=== PATIENT | female | born 1960 | race Caucasian/White ===

== ENCOUNTER 2020-03-21 07:25 | Outpatient (CLI) | payer OTHER, SELFPAY ==
[2020-03-21 08:32] LABS: Basophils Absolute Auto 0.1 K/mm3 (0.0-0.1); Basophils Percent Auto 1.1 % (0.2-1.2); Eosinophils Absolute Auto 0.3 K/mm3 (0-0.3); Eosinophils Percent Auto 3.2 % (0-4.4); Hematocrit 41.3 % (37.0-47.0); Hemoglobin 14.2 g/dL (12.0-15.0); Immature Granulocyte Absolute 0.04 K/mm3 (0.00-0.031); Immature Granulocyte Percent A 0.5 % (0-0.5); Lymphocytes Absolute Auto 2.41 K/mm3 (0.9-3.2); Lymphocytes Percent Auto 29.6 % (18.3-44.2); Mean Corpuscular HGB Conc 34.4 g/dl (32-36); Mean Corpuscular Hemoglobin 30.3 pg (26-34); Mean Corpuscular Volume 88.1 fl (80-100); Mean Platelet Volume 9.6 fl (7.4-10.4); Monocytes Absolute Auto 0.6 K/mm3 (0.1-0.6); Monocytes Percent Auto 7.5 % (2.6-8.5); Neutrophils Absolute Auto 4.7 K/mm3 (1.3-6.7); Neutrophils Percent Auto 58.1 % (45.5-73.1); Platelet Count Result 299 k/mm3 (150-375); Red Blood Count 4.69 M/mm3 (4.2-5.4); Red Cell Distribution Width 13.1 % (11.5-14.5); White Blood Count 8.1 K/mm3 (4.5-10.0)
[2020-03-21 08:49] LABS: Alanine Aminotransferase 35 U/L (4-35); Albumin Level 4.2 g/dL (3.5-5.1); Alkaline Phosphatase 91 U/L (38-126); Anion Gap 7 mmol/L (8-16); Aspartate Amino Transferase 33 U/L (14-36); Blood Urea Nitrogen 14 mg/dL (7-17); Calcium 9.5 mg/dL (8.4-10.2); Carbon Dioxide 29 mmol/L (22-30); Chloride 100 mmol/L (98-107); Cholesterol 230 mg/dL (0-200); Estimated Glomerular Filt Rate > 60; Glucose 115 mg/dL (65-105); HDL Direct 52 mg/dL; Potassium 3.8 mmol/L (3.4-5.0); Sodium 136 mmol/L (137-145); Triglycerides 226 mg/dL (<150)
[2020-03-21 09:00] LABS: LDL Cholesterol Direct 137 mg/dL
[2020-03-21 09:33] LABS: Free T4 Free Thyroxine 0.95 ng/mL (0.78-2.19)
== END 2020-03-21 07:26 | disposition home or self-care (01) ==
PROVIDERS: PCP Physician Assistant
DX: Z00.01 Encounter for general adult medical examination with abnormal findings (principal)
CPT/HCPCS: 36415; 80053; 80061; 82306; 84439; 84443; 85025

== ENCOUNTER 2020-04-01 08:24 | Outpatient (CLI) | payer OTHER, SELFPAY ==
[2020-04-01 14:46] LABS: Hemoglobin A1C 5.2 % (<5.7)
== END 2020-04-01 08:25 | disposition home or self-care (01) ==
PROVIDERS: PCP Physician Assistant
DX: R79.89 Other specified abnormal findings of blood chemistry (principal)
CPT/HCPCS: 36415; 83036

== ENCOUNTER 2020-04-15 07:22 | Outpatient (CLI) | payer OTHER, SELFPAY ==
--- NOTE | ~2020-04-15 | US_ITS ---
EXAMINATION: US pelvic complete DATE: 04/15/2020 16:42 INDICATION: Postmenopausal bleeding. TECHNIQUE: Multiple transabdominal sonographic images of the pelvis were obtained. COMPARISON: None. FINDINGS: The uterus measures 15.8 x 7.0 x 8.0 cm. Anechoic fluid measuring up to 8 mm in thickness extending t hroughout the endometrial canal. Subtracting the endometrial fluid the endometrial complex appears to measure <5 mm in thickness although in place the endometrial/myometrial junction is poorly defined. There is asymmetric thickening of the anterior myometrium which demonstrates heterogeneous echogenici ty with coarsened echotexture. No clearly defined uterine fibroid identified on the cine images. The right ovary measures 3.8 x 2.4 x 2.1 cm. The 1.8 cm near anechoic likely cyst in the right ovary. Vas cular flow identified in the right ovary on color Doppler. The left ovary is not visualized. There is no free fluid in the pelvis. IMPRESSION: 1. Asymmetrically thickened anterior myometrium with heterogeneous echogenicity and coarsened echotex ture without a clearly defined uterine fibroid which is suspicious for adenomyosis. If clinically ind icated MRI could be obtained for more definitive determination. Reviewed, dictated and finalized at location A. IMPRESSION: 1. Asymmetrically thickened anterior myometrium with heterogeneous echogenicity and coarsened echotexture without a clearly defined uterine fibroid which is s uspicious for adenomyosis. If clinically indicated MRI could be obtained for mo re definitive determination.
[2020-04-18 07:32] LABS: FSH 16.3 mIU/mL (***); LH 8.1 mIU/mL (***); Prolactin 4.1 ng/mL (***)
== END 2020-04-15 07:23 | disposition home or self-care (01) ==
PROVIDERS: Visit Provider Nurse Practitioner
DX: N95.0 Postmenopausal bleeding (principal)
CPT/HCPCS: 36415; 76856; 83001; 83002; 84146

== ENCOUNTER 2020-05-08 15:59 | Outpatient (CLI) | payer OTHER, SELFPAY ==
--- NOTE | 2020-05-08 16:04 | ECG_ITS ---
Measurements Intervals [place] Rate: 88 P: 56 AK: 165 QRS: 40 QRSD: 92 T: 5 QT: 354 QTc: 428 Interpretive Statements SINUS RHYTHM NONSPECIFIC T-WAVE ABNORMALITY- ANT/INF LEADS BORDERLINE ECG Electronically Signed On 05-08-2020 16:34:18 CDT by Edgar Hu D.O.
== END 2020-05-08 16:00 | disposition home or self-care (01) ==
LOC: ANHCARD 16:01
PROVIDERS: Visit Provider Anesthesiology
DX: I10 Essential (primary) hypertension (principal); Z01.818 Encounter for other preprocedural examination; R94.31 Abnormal electrocardiogram [ECG] [EKG]
CPT/HCPCS: 93005

== ENCOUNTER 2020-05-14 01:39 | Outpatient (CLI) | payer OTHER, SELFPAY ==
[2020-05-14 18:17] LABS: SARS-CoV-2 RNA PCR Negative
== END 2020-05-14 01:40 | disposition home or self-care (01) ==
LOC: ANHCOVIDDT 01:39
PROVIDERS: Visit Provider Obstetrics & Gynecology
DX: Z01.812 Encounter for preprocedural laboratory examination (principal); Z20.828 Contact with and (suspected) exposure to other viral communicable diseases
CPT/HCPCS: 87635; C9803; U0003

== ENCOUNTER 2020-05-16 01:22 | Day surgery (SDC) | payer OTHER, SELFPAY ==
[2020-05-05 09:29] VITALS: BMI 34.9
[2020-05-16 13:03] VITALS: BP 160/83; PULSE 92; RESP 16; TEMP 36.7; O2SAT 100
[2020-05-16] MEDS: ACETAMINOPHEN 500 MG TABLET 1000 MG PO (13:08)
[2020-05-16] MEDS: LACTATED RINGERS 1,000 ML 30 ML IV CONT ×2 (13:30→17:03)
--- NOTE | 2020-05-16 14:04 | WPDANESEPPF ---
Anes - Initial Pre Proc Eval Procedure: Operation Date: 05/16/20 15:00 Proposed Procedures p Hysteroscopy Dilation and Curettage - Raf Duque MD Date/Time: 05/16/20 14:04 Surgeon: Raf Duque MD Pre Op Diagnosis: Post Menopausal Bleeding Patient Data Age: 59 Gender: F Height: 1.65 m Weight: 94.2 kg Last Vital Signs Temp 36.7 C 05/16/20 13:03 Pulse 92 05/16/20 13:03 Resp 16 05/16/20 13:03 BP 160/83 H 05/16/20 13:03 Pulse Ox 100 05/16/20 13:03 Allergies Allergy/AdvReac Type Severity Reaction Status Date / Time No Known Allergies Allergy Unverified 05/16/20 13:01 Home Medications Medication Instructions Recorded Confirmed Type Vitamin D3 1 tablet PO DAILY 05/05/20 05/16/20 History aspirin 81 mg PO DAILY 05/05/20 05/16/20 History calcium 600 mg PO DAILY 05/05/20 05/16/20 History losartan 100 mg PO DAILY 05/05/20 05/16/20 History multivitamin 1 tablet PO DAILY 05/05/20 05/16/20 History omega-3 fatty acids [Fish Oil] 1,000 mg PO DAILY 05/05/20 05/16/20 History Patient hx anesthesia problems: none Family hx anesthesia problems: none PMFSH Past Medical History Medical History (Updated 05/16/20 @ 14:05 by Srinivas Fernández MD) HTN (hypertension) Obesity Family History Family History (Updated 08/05/16 @ 11:45 by DOCTOR UNKNOWN) Father Malignant neoplasm of prostate Grandparent Diabetes mellitus Cerebrovascular accident Carcinoma of colon Mother Family history of hypercholesterolemia Hypertension Familial primary pulmonary hypertension Social History Social History Smoking status: Never smoker Alcohol intake: current Spiritual care concerns: No Anes - Eval Final PreProcedure Day of Procedure 05/16/20 14:04 Patient weight: obese Heart: regular rate and rhythm Lungs: clear to auscultation and normal air movement Airway: Mallampati scale class II Neurological: alert and oriented Last oral intake: >/= 8 hours ASA classification: III Emergent: no Anesthetic plan: proceed Anesthesia type and monitoring: general GIVS and LMA Informed Consent: The patient's anesthetic plan and its attendant risks and benefits were discussed with the patient/family/POA. Questions were solicited and answers provided to the satisfaction of the patient/family/POA.
--- NOTE | 2020-05-16 15:14 | SUR.PREOP ---
1300-PT INFORMED SURGEON DELAYED ~45 MINUTES BY PRIOR SURGEON. 1510-PT UPDATED WITH EXPECTED TIME OF SURGERY ~1600. PT STATES SHE WILL INFORM HER OF DELAY.
--- NOTE | 2020-05-16 15:36 | P.HP_ITS ---
History of Present Illness History of Present Illness Consent: Risks, benefits, and alternatives have been discussed and questions answered. Patient agrees to proceed with procedure. Chief complaint: Post Menopausal Bleeding Narrative: Lili Lyons is a 59 year old female postmenopausal presented to the office in early april with bleeding for 1 month. patient reports bleeding heavy for two day then lightened. [facility] Past Medical History Medical History HTN (hypertension) Obesity Family History Family History Father Malignant neoplasm of prostate Grandparent Diabetes mellitus Cerebrovascular accident Carcinoma of colon Mother Family history of hypercholesterolemia Hypertension Familial primary pulmonary hypertension Social History Social History Smoking status: Never smoker Alcohol intake: current Spiritual care concerns: No Meds Home Medications and Allergies Home Medications Medication Instructions Recorded Confirmed Type Vitamin D3 1 tablet PO DAILY 05/05/20 05/16/20 History aspirin 81 mg PO DAILY 05/05/20 05/16/20 History calcium 600 mg PO DAILY 05/05/20 05/16/20 History losartan 100 mg PO DAILY 05/05/20 05/16/20 History multivitamin 1 tablet PO DAILY 05/05/20 05/16/20 History omega-3 fatty acids [Fish Oil] 1,000 mg PO DAILY 05/05/20 05/16/20 History Allergies Allergy/AdvReac Type Severity Reaction Status Date / Time No Known Allergies Allergy Unverified 05/16/20 13:01 Vital Signs Vital Signs - 24 hr 05/16/20 13:03 Temperature 36.7 C Pulse Rate 92 Respiratory Rate 16 Blood Pressure 160/83 H Pulse Oximetry 100 Exam Resp: Effort & Inspection: normal respiratory effort Percussion: percussion normal Cardio: Rate: regular rate Rhythm: regular rhythm GI: Other: cervix positive blood at os. Assessment and Plan Assessment and plan (1) Post-menopausal bleeding: Code(s): N95.0 - Postmenopausal bleeding Status: Acute Assessment and Plan: scheduled for a hysteroscopy dilation and curettage. Risk and benefits reviewed in detail.
--- NOTE | 2020-05-16 15:39 | WPDHPUPDATE1 ---
History and Physical Update Update Date/Time: 05/16/20 15:39 History and Physical has been reviewed, including an updated exam of the patient. There are NO changes in the patient's condition. Risks, benefits, and alternatives have been discussed and questions answered. Patient agrees to proceed with procedure.
[2020-05-16] MEDS: LIDOCAINE HCL 1% LOCAL INJ 10 ML VIAL INFILTRATE (16:31)
--- NOTE | 2020-05-16 16:45 | PM.PROC ---
Procedure Note - Detailed Date of procedure: 05/16/20 Pre-op diagnosis: Post Menopausal Bleeding Post-op diagnosis: same Procedure performed: hysteroscopy dilation and curettage with polypectomy Description of procedure: Patient was taken to the operating room with IV running. and she was repaired draped in normal sterile fashion placed in the dorsal lithotomy position. A bivalve speculum was placed into the vagina. Anterior lip of the cervix was grasped with single-tooth tenaculum. The uterus was injected at the 2 and 10 o'clock position with 5cc of lidocaine bilaterally. Uterus was sounded to 7cm the cervix was dilated serially with Hegar dilators. Hysteroscope was introduced and noted to small uterine polyps. These were grasped with the polyp forceps graspers. A curettage was then performed in all 4 quadrants with a gritty texture. And all instruments were removed from the vagina and hemostasis was assured. Patient tolerated the procedure well sponge lap and needle counts were correct x2. Anesthesia: GLMA Surgeon: Raf Duque MD Estimated blood loss (mL): 10 Drains: No Packing: No Pathology: yes Complications: None Condition: stable Disposition: PACU Findings: small endometrial polyps.
[2020-05-16 16:46] VITALS: BP 117/76; PULSE 93; RESP 16; O2SAT 96
[2020-05-16 17:16] VITALS: BP 125/70; PULSE 82; RESP 16
== END 2020-05-16 17:30 | disposition home or self-care (01) ==
PROVIDERS: PCP Internal Medicine; Visit Provider Obstetrics & Gynecology
PROC: 0U5B8ZZ Destruction of Endometrium, Via Natural or Artificial Opening Endoscopic (ICD-10-PCS; CPT 58563; principal; 2020-05-16 15:00)
DX: N95.0 Postmenopausal bleeding (principal); N84.0 Polyp of corpus uteri; I10 Essential (primary) hypertension; E11.9 Type 2 diabetes mellitus without complications; Z68.34 Body mass index [BMI] 34.0-34.9, adult
CPT/HCPCS: 58558; 88305; A9270; J2250; J2704; J3010; J7030; J7120

== ENCOUNTER 2020-06-18 07:09 | Outpatient (CLI) | payer OTHER, SELFPAY ==
--- NOTE | ~2020-06-18 | MM_ITS ---
EXAMINATION: MM screening sabina BI w kamila HISTORY: Screening mammogram TECHNIQUE: Craniocaudal and mediolateral oblique 3-D tomosynthesis images were obtained and synthetic 2-D images were generated. CAD analysis was submitted and interpreted. COMPARISON: 06/11/2019, 05/17/2018, 05/04/2017 bilateral digital screening mammogram examinations BREAST PARENCHYMAL COMPOSITION: There are scattered areas of fibroglandular density. FINDINGS: There is a 5-8 mm high density opacity (or contiguous opacities) in the central right breas t on craniocaudal view (craniocaudal Tomosynthesis images 33 - 39/72). Diagnostic right mammogram and right breast ultrasound examination are recommended for better definition. Otherwise there is no evidence of suspicious mass, calcification, or architectural distortion to sugg est malignancy in either breast. There are scattered bilateral benign calcifications. There has been no other suspicious interval change. IMPRESSION: 1. Asymmetric density in central right breast on craniocaudal view 2. Diagnostic right mammogram and right breast ultrasound examination are recommended. BI-RADS Category 0: Incomplete: Needs additional imaging evaluation. Reviewed, dictated and finalized at location A. CH TRIMMER IMPRESSION: 1. Asymmetric density in central right breast on craniocaudal view 2. Diagnostic right mammogram and right breast ultrasound examination are recom mended. BI-RADS Category 0: Incomplete: Needs additional imaging evaluation.
== END 2020-06-18 07:10 | disposition home or self-care (01) ==
PROVIDERS: Visit Provider Obstetrics & Gynecology
DX: Z12.31 Encounter for screening mammogram for malignant neoplasm of breast (principal); R92.8 Other abnormal and inconclusive findings on diagnostic imaging of breast
CPT/HCPCS: 77063; 77067

== ENCOUNTER 2020-06-19 08:15 | Outpatient (CLI) | payer OTHER, SELFPAY ==
--- NOTE | ~2020-06-19 | MMUS_ITS ---
EXAMINATION: MM diagnostic mammo unilat RT, US breast RT complete HISTORY: Asymmetric mammographic density reported in central right breast on 06/18/2020 screening mamm ogram TECHNIQUE: Additional 3-D tomosynthesis images of the right breast were performed and synthetic 2-D i mages were generated. CAD analysis was submitted and interpreted. High resolution complete right abhishek st ultrasound was performed. COMPARISON: 06/18/2020, 06/11/2019, 05/17/2018, 05/04/2017, 05/10/2016 bilateral digital screening sabina mogram examinations FINDINGS: MAMMOGRAPHIC FINDINGS: There is a stable focal asymmetric density measuring up to approximately 6 mm in the central right br east on craniocaudal view, not significantly changed since 03/29/2014. ULTRASOUND: 9:00 near nipple: 2.2 x 3.2 x 4.9 mm sonolucency most consistent with benign process, likely a small lymph node. No suspicious mass or shadowing is detected elsewhere. No suspicious sonographic finding in the cent ral right breast. IMPRESSION: 1. Probably benign 2.2 x 3.2 x 4.9 mm circumscribed mass at 9:00 near nipple 2. 6 month follow up targeted right breast ultrasound examination at 9:00 near nipple BI-RADS category 3, probably benign findings. Reviewed, dictated and finalized at location A. [employer] OFF[employer] IMPRESSION: 1. Probably benign 2.2 x 3.2 x 4.9 mm circumscribed mass at 9:00 near nipple 2. 6 month follow up targeted right breast ultrasound examination at 9:00 near nipple BI-RADS category 3, probably benign findings.
== END 2020-06-19 08:16 | disposition home or self-care (01) ==
PROVIDERS: Visit Provider Obstetrics & Gynecology
DX: R92.8 Other abnormal and inconclusive findings on diagnostic imaging of breast (principal)
CPT/HCPCS: 76641; 77065

== ENCOUNTER 2020-10-08 14:05 | Emergency (ER) | payer OTHER, SELFPAY ==
--- NOTE | ~2020-10-08 | CT_ITS ---
EXAMINATION: CT hand LT wo con DATE: 10/08/2020 16:27 INDICATION: Intra-articular fracture at the base of the left fifth metacarpal. TECHNIQUE: High resolution computed tomography (CT) of the left hand was performed without intravenou s contrast. Additional sagittal and coronal reconstructions were performed. Automated exposure contro l and iterative reconstruction technique were employed. The dose-length product was 462.51 mGy-cm. COMPARISON: Left hand radiographs dated 10/08/2020 FINDINGS: Again seen is a comminuted intra-articular fracture at the base of the fifth metacarpal. The main dis brittany fragment compressing diaphysis and dorsal aspect of the metaphyseal region is displaced 3 mm prox imally and 1 mm posteriorly relative to a couple small fragments which comprises the palmar aspect of the proximal metaphyseal region and ulnar rim of the proximal articular surface and the second fragm ent which comprises the central majority of the proximal articular surface which remains in normal al ignment with respect to the hamate. There is an additional small fragment or closely opposed pair of fragments which comprises the ulnar rim of the proximal articular surface which along with the main d istal diaphyseal fragment are displaced a similar 3 mm proximally across the ulnar rim of the distal articular surface of the hamate. No other fractures identified. Normal alignment throughout the remainder of the left wrist and hand. 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 There is mild soft tissue swelling in the region of the fracture. IMPRESSION: 1. Comminuted intra-articular fracture at the base of the left fifth metacarpal as detailed above. Reviewed, dictated and finalized at location A.
--- NOTE | ~2020-10-08 | XR_ITS ---
XR knee RT min 4V 10/08/2020 14:56 Indication: Right knee pain after fall Procedure: 5 views of the right knee Comparison: No prior studies for comparison. Findings: There is a transverse patellar fracture without significant displacement. There is a modera te joint effusion. There is mild osteoarthritis of the knee. No other fracture is identified. No fore ign bodies. Impression: 1: Transverse nondisplaced fracture inferior aspect of the right patella. 2: Moderate joint effusion. Reviewed, dictated and finalized at location A. Impression: 1: Transverse nondisplaced fracture inferior aspect of the right patella. 2: Moderate joint effusion.
--- NOTE | ~2020-10-08 | XR_ITS ---
EXAMINATION: XR hand LT min 3V DATE: 10/08/2020 14:55 INDICATION: Left hand pain post fall TECHNIQUE: Posteroanterior, oblique and lateral views of the left hand were obtained. COMPARISON: None. FINDINGS: Comminuted intra-articular fracture at the base of the fifth metacarpal. There appears to be some dis placement of the bone fragments which has a potential for a significant (greater than 2 mm) fracture gap or incongruity at the articular surface which is not clearly profiled. No other fractures identif ied. 2 mm ulnar minus variance. Alignment is otherwise unremarkable. Mild polyarticular osteoarthriti s at the distal radioulnar, first carpometacarpal and multiple predominantly distal interphalangeal j oints. IMPRESSION: 1. Comminuted intra-articular fracture at the base of the fifth metacarpal with some displacement wit h potential for a significant gap or incongruity at the articular surface. Reviewed, dictated and finalized at location A. IMPRESSION: 1. Comminuted intra-articular fracture at the base of the fifth metacarpal with some displacement with potential for a significant gap or incongruity at the a rticular surface.
[2020-10-08 14:07] VITALS: BP 164/92; PULSE 98; RESP 16; TEMP 36.9; O2SAT 100
--- NOTE | 2020-10-08 14:40 | ED.GENADULT ---
HPI - General Adult General Chief complaint: Fall Stated complaint: fall Time Seen by Provider: 10/08/20 14:24 Source: RN notes reviewed History of Present Illness HPI narrative: Patient presents emergency department from work for a fall. Patient states she was walking when she tripped falling on her right knee and striking her left arm patient states that she note later noted some small swelling and abrasion over her left cheek she denies any loss of consciousness and denies striking her head that she recalls she denies any other pain or injury states she took Tylenol approximately 1 hour ago denies any chest pain shortness of breath nausea or vomiting Related Data Home Medications Medication Instructions Recorded Confirmed Vitamin D3 1 tablet PO DAILY 05/05/20 05/16/20 aspirin 81 mg PO DAILY 05/05/20 05/16/20 calcium 600 mg PO DAILY 05/05/20 05/16/20 losartan 100 mg PO DAILY 05/05/20 05/16/20 multivitamin 1 tablet PO DAILY 05/05/20 05/16/20 omega-3 fatty acids [Fish Oil] 1,000 mg PO DAILY 05/05/20 05/16/20 Allergies Allergy/AdvReac Type Severity Reaction Status Date / Time No Known Allergies Allergy Unverified 05/16/20 13:01 Review of Systems Review of Systems: Narrative: Gen.: Denies fevers or chills Eyes: Denies eye pain or visual change ENT: Denies congestion Respiratory: Denies shortness of breath or cough CV: Denies chest pain GI: Denies abdominal pain nausea, emesis or diarrhea Musculoskeletal: See HPI Neuro: Denies numbness, tingling, weakness or focal weakness Skin: Denies rash Except as documented, all other systems reviewed and negative [facility] Past Medical History Medical History HTN (hypertension) Obesity Post-menopausal bleeding Family History Family History Father Malignant neoplasm of prostate Grandparent Diabetes mellitus Cerebrovascular accident Carcinoma of colon Mother Family history of hypercholesterolemia Hypertension Familial primary pulmonary hypertension Social History Social History Smoking status: Never smoker Alcohol intake: current Spiritual care concerns: No Exam Narrative: Exam Narrative: APPEARANCE: No acute distress, nontoxic, resting in bed EYES: EOMI, PERRL HEENT: Normocephalic, small area of abrasion and swelling over the left inferior lateral orbit there is no tenderness to palpation in this area no step-off TMs clear bilaterally nares patent oral mucosa moist Neck: Supple nontender to palpation for range of motion without pain RESPIRATORY: No respiratory distress Clear to auscultation bilaterally with no rhonchi wheezing or rales. CARDIOVASCULAR: Regular rate and rhythm without murmurs rubs or gallops. ABDOMINAL: Soft, nontender, nondistended, no rebound or guarding MUSCULOSKELETAl: Moves all extremities. No clubbing, cyanosis or edema. Tender palpation of the right anterior knee with swelling ecchymosis present full range of motion of the knee no tenderness of the right hip or ankle to palpation on the left lateral palmar hand over the fifth metatarsal no swelling or ecchymosis no tenderness of the wrist with full range of motion of the wrist full flexion-extension of all 5 MCP joints, radial pulse 2+ neurovascular intact right lower extremity neurovascular intact NEURO: Awake and alert x 4 Following commands, speech normal, no focal deficits SKIN:: Warm, dry. No rashes lesions or abrasions PSYCHIATRIC: Normal affect/mood, Course Course Emergency Course: Discussed with Dr. Poole presentation work-up agrees with follow-up requested patient be discharged with a walker with a forearm platform order he request a CT scan him be obtained request patient started on aspirin 81 mg twice a day for DVT prophylaxis Discussed with patient results of workup and diagnosis. Discussed need for follow-up with damián
--- NOTE | 2020-10-08 16:16 | PC.NURSE ---
Patient declined crutches, has some at home as well as a walker.
--- NOTE | 2020-10-14 10:54 | PC.NURSE ---
10/14/30 This Note is addendum to the left arm orthoglass splint and assessment to left arm after splint application on 10/08/20. PVS to left arm WNL after splint application by career and technology education teacher.
== END 2020-10-08 17:23 | disposition home or self-care (01) ==
PROVIDERS: Emergency Provider Emergency Medicine; PCP Internal Medicine
DX: S82.001A Unspecified fracture of right patella, initial encounter for closed fracture (principal); S62.307A Unspecified fracture of fifth metacarpal bone, left hand, initial encounter for closed fracture; S00.83XA Contusion of other part of head, initial encounter; I10 Essential (primary) hypertension; W01.0XXA Fall on same level from slipping, tripping and stumbling without subsequent striking against object, initial encounter
CPT/HCPCS: 29125; 73130; 73200; 73564; 99284

== ENCOUNTER 2020-10-17 10:59 | Outpatient (CLI) | payer OTHER, SELFPAY ==
--- NOTE | ~2020-10-17 | US_ITS ---
EXAMINATION:US venous doppler LE RT INDICATION:Right leg swelling postpatellar fracture TECHNIQUE: Multiple grayscale, color flow and Doppler images of the right lower extremity deep venous systems were obtained and reviewed. COMPARISON:No prior studies for comparison. FINDINGS: The common femoral, superficial femoral and popliteal veins demonstrate normal respiratory variation, augmentation and compressibility. Color flow is also seen within the greater saphenous an d profunda veins. There is a venous thrombosis of the right posterior tibial and peroneal veins. IMPRESSION: 1: Deep venous thrombosis of the right peroneal and posterior tibial veins. Dr. Parker discussed with Dr. Ubaldo Poole MD at 10/17/2020 11:55 CDT. Reviewed, dictated and finalized at location B.
== END 2020-10-17 11:00 | disposition home or self-care (01) ==
PROVIDERS: Visit Provider Orthopaedic Surgery
DX: M79.89 Other specified soft tissue disorders (principal); I82.441 Acute embolism and thrombosis of right tibial vein
CPT/HCPCS: 93971

== ENCOUNTER 2020-10-17 12:16 | Emergency (ER) | payer OTHER, SELFPAY ==
[2020-10-17 12:21] VITALS: BP 157/87; PULSE 92; RESP 16; TEMP 36.3; O2SAT 99
--- NOTE | 2020-10-17 14:37 | ED.GENADULT ---
HPI - General Adult General Chief complaint: Extremity Problem,Nontraumatic Stated complaint: sent from radiology for dvt rt leg Time Seen by Provider: 10/17/20 14:26 Source: patient, family and old records reviewed Mode of arrival: ambulatory Limitations: no limitations History of Present Illness HPI narrative: Patient is a 60-year-old female who presents per request of her orthopedic surgeon for evaluation of DVT found in the right leg today patient had recently was found to have DVT in the right leg secondary to immobilization after developing a patella fracture seen her orthopedist today was found to have blood clot and was referred to ER patient denies any pain similar occurrence clotting disorders or other complaints and on arrival is resting in the room in no distress Related Data Home Medications Medication Instructions Recorded Confirmed Vitamin D3 1 tablet PO DAILY 05/05/20 05/16/20 aspirin 81 mg PO DAILY 05/05/20 05/16/20 calcium 600 mg PO DAILY 05/05/20 05/16/20 losartan 100 mg PO DAILY 05/05/20 05/16/20 multivitamin 1 tablet PO DAILY 05/05/20 05/16/20 omega-3 fatty acids [Fish Oil] 1,000 mg PO DAILY 05/05/20 05/16/20 Allergies Allergy/AdvReac Type Severity Reaction Status Date / Time No Known Allergies Allergy Unverified 05/16/20 13:01 Review of Systems Review of Systems: All systems reviewed & are unremarkable except as noted in HPI and below PMFSH Past Medical History Medical History HTN (hypertension) Obesity Post-menopausal bleeding Family History Family History Father Malignant neoplasm of prostate Grandparent Diabetes mellitus Cerebrovascular accident Carcinoma of colon Mother Family history of hypercholesterolemia Hypertension Familial primary pulmonary hypertension Social History Social History Smoking status: Never smoker Alcohol intake: current Gender identity (if verbalized by the patient): Female Spiritual care concerns: No Exam Narrative: Exam Narrative: GENERAL: Well-appearing, well-nourished, and in no acute distress. HEAD: Normocephalic, atraumatic. EYES: PERRLA and EOMI. ENT: Nares clear, no rhinorrhea or epistaxis. Mucous membranes moist. CHEST: Clear to auscultation. No respiratory distress. No wheezes rales or rhonchi HEART: Regular rate and rhythm. No murmur heard. Normal peripheral pulses. EXTREMITIES: Normal range of motion. 2+ edema right foot nontender SKIN: Warm, dry, no rash. NEURO: No focal deficits. Alert and oriented x3. Neurovascularly intact. Capillary refill less than 2-second PSYCH: Normal mood and affect. Course Course Emergency Course: Patient in the room no distress aware of case findings treatment plan diagnosis given first dose of Eliquis in the ER will be started on starter pack and will follow with her orthopedist and primary care for further evaluation. Vital Signs Vital signs: Vital Signs Temperature 97.3 F L 10/17/20 12:21 Pulse Rate 92 10/17/20 12:21 Respiratory Rate 16 10/17/20 12:21 Blood Pressure 157/87 H 10/17/20 12:21 Pulse Oximetry 99 10/17/20 12:21 Temperature 97.3 F L 10/17/20 12:21 Pulse Rate 92 10/17/20 12:21 Respiratory Rate 16 10/17/20 12:21 Blood Pressure 157/87 H 10/17/20 12:21 Pulse Oximetry 99 10/17/20 12:21 Medical Decision Making MDM Narrative Medical decision making narrative: Patient presented with DVT. No signs of neurological or vascular compromise on exam. Compartments and tisues are soft without signs of compartment syndrome. Pain is felt appropriate for further evaluation on an outpatient basis. Patient started on anticoagulation Vital Signs Vital Signs: Vital Signs Temperature 97.3 F L 10/17/20 12:21 Pulse Rate 92 10/17/20 12:21 Respiratory Rate 16 10/17/20 12:21 Blood Pressure 157
[2020-10-17] MEDS: APIXABAN 5 MG TABLET 10 MG PO (15:02)
[2020-10-17 15:15] LABS: Basophils Absolute Auto 0.1 K/mm3 (0.0-0.1); Basophils Percent Auto 0.7 % (0.2-1.2); Eosinophils Absolute Auto 0.2 K/mm3 (0-0.3); Eosinophils Percent Auto 1.9 % (0-4.4); Hematocrit 38.6 % (37.0-47.0); Hemoglobin 13.2 g/dL (12.0-15.0); Immature Granulocyte Absolute 0.03 K/mm3 (0.00-0.031); Immature Granulocyte Percent A 0.4 % (0-0.5); Lymphocytes Absolute Auto 1.86 K/mm3 (0.9-3.2); Lymphocytes Percent Auto 22.6 % (18.3-44.2); Mean Corpuscular HGB Conc 34.2 g/dl (32-36); Mean Corpuscular Hemoglobin 30.7 pg (26-34); Mean Corpuscular Volume 89.8 fl (80-100); Mean Platelet Volume 9.5 fl (7.4-10.4); Monocytes Absolute Auto 0.6 K/mm3 (0.1-0.6); Monocytes Percent Auto 7.2 % (2.6-8.5); Neutrophils Absolute Auto 5.5 K/mm3 (1.3-6.7); Neutrophils Percent Auto 67.2 % (45.5-73.1); Platelet Count Result 292 k/mm3 (150-375); Red Cell Distribution Width 13.1 % (11.5-14.5); White Blood Count 8.2 K/mm3 (4.5-10.0)
[2020-10-17 15:29] LABS: Anion Gap 7 mmol/L (8-16); Blood Urea Nitrogen 17 mg/dL (7-17); Carbon Dioxide 30 mmol/L (22-30); Chloride 107 mmol/L (98-107); Estimated CRCL calculation 98 ml/min; Estimated Glomerular Filt Rate > 60; Glucose 97 mg/dL (65-105); Potassium 3.5 mmol/L (3.4-5.0); Sodium 144 mmol/L (137-145)
== END 2020-10-17 16:00 | disposition home or self-care (01) ==
PROVIDERS: Emergency Medicine Emergency Medical Services; Emergency Provider Emergency Medicine; PCP Internal Medicine
DX: I82.401 Acute embolism and thrombosis of unspecified deep veins of right lower extremity (principal); I10 Essential (primary) hypertension; E66.9 Obesity, unspecified; Z68.35 Body mass index [BMI] 35.0-35.9, adult; Z79.82 Long term (current) use of aspirin; S82.001D Unspecified fracture of right patella, subsequent encounter for closed fracture with routine healing; X58.XXXD Exposure to other specified factors, subsequent encounter
CPT/HCPCS: 36415; 80048; 85025; 99283; A9270

== ENCOUNTER 2021-01-09 07:01 | Outpatient (CLI) | payer OTHER, SELFPAY ==
--- NOTE | ~2021-01-09 | MMUS_ITS ---
EXAMINATION: MM diagnostic sabina RT w kamila, US breast RT limited HISTORY: Six-month follow-up of probably benign 2.2 x 3.2 x 4.9 mm circumscribed mass at 9:00 near ni pple TECHNIQUE: ML, MLO and craniocaudal full field and spot 3-D tomosynthesis images of the right breast were performed and synthetic 2-D images were generated. CAD analysis was submitted and interpreted. H igh resolution complete right breast ultrasound was performed. COMPARISON: 07/06/2020 diagnostic right mammogram and complete right breast ultrasound examination 06/18/2020, 06/11/2019, 05/17/2018, 05/04/2017, 05/10/2016 bilateral digital screening mammogram exam[facility] [place] BREAST PARENCHYMAL COMPOSITION: There are scattered areas of fibroglandular density. FINDINGS: MAMMOGRAPHIC FINDINGS: There is stable mildly nodular fibroglandular stroma, including approximately 5 mm nodular density in the central right breast 4.5 cm deep to the nipple on craniocaudal view, unchanged since 05/06/2016. No interval suspicious mass, architectural distortion, malignant calcification, skin thickening or re traction or significant new or developing density. There are scattered benign calcifications. ULTRASOUND: 9:00 near nipple: 2.3 x 3.6 x 4.9 mm circumscribed hypoechoic lesion with suggestion of a fatty hilum , with mild color flow signal at the hilum, likely a benign lymph node. There is no significant sanders e since No suspicious mass or shadowing is detected elsewhere. IMPRESSION: 1. No mammographic evidence of malignancy 2. Routine mammographic screening is recommended BI-RADS Category 2: Benign finding(s). Reviewed, dictated and finalized at location A. IMPRESSION: 1. No mammographic evidence of malignancy 2. Routine mammographic screening is recommended BI-RADS Category 2: Benign finding(s).
== END 2021-01-09 07:02 | disposition home or self-care (01) ==
LOC: ANHIMG 07:03
PROVIDERS: PCP Obstetrics & Gynecology; Visit Provider Obstetrics & Gynecology
DX: R92.8 Other abnormal and inconclusive findings on diagnostic imaging of breast (principal)
CPT/HCPCS: 76641; 76642; 77061; 77065; G0279

== ENCOUNTER 2021-07-31 10:53 | Outpatient (CLI) | payer OTHER, SELFPAY ==
[2021-07-31 19:02] LABS: Basophils Absolute Auto 0.1 K/mm3 (0.0-0.1); Basophils Percent Auto 1.1 % (0.2-1.2); Eosinophils Absolute Auto 0.2 K/mm3 (0-0.3); Eosinophils Percent Auto 2.2 % (0-4.4); Hematocrit 42.7 % (37.0-47.0); Hemoglobin 14.3 g/dL (12.0-15.0); Immature Granulocyte Absolute 0.03 K/mm3 (0.00-0.031); Immature Granulocyte Percent A 0.4 % (0-0.5); Lymphocytes Absolute Auto 1.99 K/mm3 (0.9-3.2); Lymphocytes Percent Auto 27.5 % (18.3-44.2); Mean Corpuscular HGB Conc 33.5 g/dl (32-36); Mean Corpuscular Volume 92.6 fl (80-100); Mean Platelet Volume 10.4 fl (7.4-10.4); Monocytes Absolute Auto 0.5 K/mm3 (0.1-0.6); Monocytes Percent Auto 7.3 % (2.6-8.5); Neutrophils Absolute Auto 4.5 K/mm3 (1.3-6.7); Neutrophils Percent Auto 61.5 % (45.5-73.1); Platelet Count Result 271 k/mm3 (150-375); Red Blood Count 4.61 M/mm3 (4.2-5.4); Red Cell Distribution Width 13.2 % (11.5-14.5); White Blood Count 7.2 K/mm3 (4.5-10.0)
[2021-07-31 19:08] LABS: Alanine Aminotransferase 34 U/L (4-35); Albumin Level 4.1 g/dL (3.5-5.1); Alkaline Phosphatase 87 U/L (38-126); Anion Gap 3 mmol/L (8-16); Aspartate Amino Transferase 28 U/L (14-36); Blood Urea Nitrogen 18 mg/dL (7-17); Calcium 9.9 mg/dL (8.4-10.2); Carbon Dioxide 30 mmol/L (22-30); Chloride 105 mmol/L (98-107); Estimated Glomerular Filt Rate > 60; Glucose 106 mg/dL (65-110); Potassium 4.1 mmol/L (3.4-5.0); Sodium 138 mmol/L (137-145)
[2021-07-31 19:25] LABS: Vitamin D 25 Hydroxy 50.8 ng/mL
== END 2021-07-31 10:54 | disposition home or self-care (01) ==
DX: Z00.01 Encounter for general adult medical examination with abnormal findings (principal)
CPT/HCPCS: 36415; 80053; 82306; 84443; 85025

== ENCOUNTER 2021-08-12 09:33 | Outpatient (CLI) | payer OTHER, SELFPAY ==
--- NOTE | ~2021-08-12 | MM_ITS ---
EXAMINATION: MM screening sabina BI w kamila HISTORY: Screening mammogram, family history of breast cancer in her mother. TECHNIQUE: Craniocaudal and mediolateral oblique 3-D tomosynthesis images were obtained and synthetic 2-D images were generated. CAD analysis was submitted and interpreted. COMPARISON: 01/09/2021, 06/19/2020, 06/18/2020, 06/11/2019, 05/16/2018, 05/04/2017 BREAST PARENCHYMAL COMPOSITION: There are scattered areas of fibroglandular density. FINDINGS: Scattered benign-appearing calcifications are present. A stable asymmetry is present in the middle third of the central right breast on the craniocaudal view. There is no evidence of suspiciou s mass, calcification, or architectural distortion to suggest malignancy in either breast. There has been no suspicious interval change. IMPRESSION: 1. No mammographic evidence of malignancy. 2. Recommend routine screening mammography in one year. BI-RADS Category 2: Benign finding(s). Reviewed, dictated and finalized at location A.
== END 2021-08-12 09:34 | disposition home or self-care (01) ==
LOC: ANHIMG 09:34
PROVIDERS: Visit Provider Obstetrics & Gynecology
DX: Z12.31 Encounter for screening mammogram for malignant neoplasm of breast (principal)
CPT/HCPCS: 77063; 77067

== ENCOUNTER 2022-08-25 07:23 | Outpatient (CLI) | payer OTHER, SELFPAY ==
--- NOTE | ~2022-08-25 | CT_ITS ---
Non-contrast CT scan of the Abdomen Clinical indication: Abdominal wall bulge Technique: 5 mm axial scans were obtained through the abdomen without intravenous or oral contrast. Dose reduction technique was used on this scan by utilizing automated exposure control and iterative reconstruction technique. The dose-length product (DLP) was 1001.02 mGy-cm. Findings: Images through the lung bases reveal no abnormalities. There is no evidence of renal or ureteral calculi. The kidneys and the ureters are nondilated. Diffuse fatty infiltration of liver noted. The spleen, pancreas, gallbladder, and adrenals appear nor mal. There is no aortic aneurysm. Visualized bowel loops are unremarkable. There is minimal laxity at the anterior abdominal wall at th e umbilical region without marissa hernia. There is minimal haziness in the central mesentery with smal l shotty lymph nodes present. Impression: Mild laxity of the anterior abdominal wall at the umbilicus, without marissa hernia. Findings compatible with mild mesenteric panniculitis. Diffuse fatty infiltration of liver. Reviewed, dictated and finalized at location . ALS INTELLIGENCE SUPERINTENDENT Impression: Mild laxity of the anterior abdominal wall at the umbilicus, without marissa marlena ia. Findings compatible with mild mesenteric panniculitis. Diffuse fatty infiltration of liver.
--- NOTE | ~2022-08-25 | MM_ITS ---
EXAMINATION: MM screening sabina BI w kamila HISTORY: Screening mammogram TECHNIQUE: Craniocaudal and mediolateral oblique 3-D tomosynthesis images were obtained and synthetic 2-D images were generated. CAD analysis was submitted and interpreted. COMPARISON: 08/12/2021 bilateral screening mammogram 01/09/2021 diagnostic right mammogram and limited right breast ultrasound examination 06/19/2020 diagnostic right mammogram and complete right breast ultrasound examination 06/18/2020, 06/11/2019 bilateral screening mammogram examinations BREAST PARENCHYMAL COMPOSITION: There are scattered areas of fibroglandular density. FINDINGS: Stable probable benign intramammary lymph node, in the outer mid right breast. Scattered bi lateral benign calcifications. There is no evidence of suspicious mass, calcification, or architectur al distortion to suggest malignancy in either breast. There has been no suspicious interval change. IMPRESSION: 1. No mammographic evidence of malignancy. 2. Recommend routine screening mammography in one year. BI-RADS Category 2: Benign finding(s). Reviewed, dictated and finalized at location A. UNITY DEVELOPMENT OFFICER
--- NOTE | ~2022-08-25 | DEXA_ITS ---
Bone Density Report Name: JEFFRY DIAZ Age: 62 Sex: Female Ethnicity: White Date of : 1960 Indication: postmenopausal; screening for osteoporosis; height loss; prior fracture; Referring Provider: JLUIS STRANGE Study: Bone densitometry was performed. Exam Date: August 25, 2022 Accession number: [id number] Bone Density: Region BMD T-score Z-score Classification AP Spine(L1-L4) 1.351 2.8 4.3 Normal Femoral Neck (Left) 0.808 -0.4 1.0 Normal Total Hip (Left) 1.020 0.6 1.7 Normal Femoral Neck (Right) 0.747 -0.9 0.5 Normal Total Hip (Right) 0.996 0.4 1.5 Normal Total Hip Mean 1.008 0.5 1.6 Normal World Health Organization criteria for BMD impression classify patients as: Normal (T-score at or above -1.0), Osteopenia (T-score between -1.0 and -2.5), or Osteoporosis (T-score at or below -2.5). 10-year Fracture Risk: FRAX not reported because: All T-scores for Spine Total, Hip Total, Femoral Neck at or above -1.0 Clinical Information Provided by Patient: Has had a low trauma fracture Has used the following medications: Vitamin D, Calcium Patient maximum height was 65 Menopause Age: 54 No regular weight bearing exercise Drinks caffeinated beverages Onset of menses at age 11 Number of children 3 Impression: The patient has normal bone mass. The patient has risk factors, including: previous fracture. Discussion: BONE DENSITY IS ABOVE THE MINIMUM DESIRABLE LEVEL AT ALL SKELETAL SITES TESTED. This patient?s bone mineral density is above the minimum desirable level (T-score -1.0 or better) at all sites measured. The patient should follow a healthful lifestyle (good nutrition with adequate calcium and vitamin D, and appropriate weight-bearing exercise). Follow-Up: Consider repeating this study in 5 years or sooner if there is some new clinical indication. Reported by: VIANNEY on 08/25/2022 10:34:00 AM. Reviewed, dictated and finalized at location Ariana BEARD
== END 2022-08-25 07:24 | disposition home or self-care (01) ==
LOC: ANHIMG 07:25
DX: Z12.31 Encounter for screening mammogram for malignant neoplasm of breast (principal); Z78.0 Asymptomatic menopausal state; R19.00 Intra-abdominal and pelvic swelling, mass and lump, unspecified site; K76.0 Fatty (change of) liver, not elsewhere classified
CPT/HCPCS: 74150; 77063; 77067; 77080

== ENCOUNTER 2022-09-23 15:30 | Outpatient (RCR) | payer OTHER, SELFPAY ==
--- NOTE | 2022-08-19 15:53 | PTOPEVAL1 ---
Assessment and note entered by Kiki Vincent, PT Evaluation Information Assessment Status Evaluation Diagnosis chronic pain B knees, chronic back pain Subjective Information Lili reports her knees are worse than back; wants to start treatment on her knees; previous R patellar fracture 2 years ago; feels like pressure on knees and leaning body forward and going to fall forward; have not had any falls; problems on stairs, have to do one step at a time; cannot get on/off floor without using her hands to pull self up; have not had any xrays of back or knees; do not do any exercises for legs; Reported Pain Level Pain Score Self Report Additional Pain Score Comments pain in knees 0-5/10; increase with sit to stand transfer and stairs; decrease pain with sit/rest, ibuprofen; occasional use of heat pad; sleep in recliner due to discomfort in bed; does not have a knee brace; leukotape strip applied to lateral patella, to improve tracking; educated pt on tape and monitor skin; Assessment PT Clinical Summary Lili has the diagnosis of chronic knee pain. She reports pain increase with sit/stand and stairs, and has been sleeping in a recliner due to cannot get comfortable in the bed. It is hard to get up/down from the floor. She does not do any exercises at home for her legs. With the evaluation, she has decreased strength and ROM of B hip extension, with tightness of B hamstrings, lateral hip/piriformis, and quad/ anterior hip; decreased single leg standing tolerance; lateral tracking of B patella. Skilled PT services are indicated for modalities to decrease pain, therapeutic exercises to stretch and strengthen hips and knees, with education for home exercises and posturing/ body mechanics. Plan of Care Interventions Electrical Stimulation,Hot Pack/Cold Pack,Manual Therapy,Neuro Re-education,Patient/Caregiver Education,Therapeutic Activities,Therapeutic Exercise,Other Other Interventions taping PT Services Indicated Yes Treatment Frequency and 1-2x/wk for 5 weeks, depending upon her work Duration schedule These treatments will address the objective and functional deficits as defined above. The patient will be advanced safely and appropriately in order for the patient to progress towards his/her prior level of function. Additional exercises will be introduced and
--- NOTE | 2022-09-23 16:09 | PTOPDC ---
Assessment and note entered by Kiki Vincent, PT Evaluation Information Assessment Status Discharge Diagnosis chronic pain B knees, chronic back pain Subjective Information Lili reports: is doing better, less pain, balance is better; is doing all the exercises at home OK; doing steps at home without pain, little unsteady because steps are steep; Reported Pain Level Pain Score Self Report Additional Pain Score Comments pain range 0-2/10 knees in past week; some stiffness when first wake up in AM; standing and positions of legs, does not last; Assessment PT Clinical Summary Lili has received 7 PT sessions. Compared to the initial evaluation: she has improved with decreased pain and increased strength of knees/hips; increased flexibility of R and L hamstrings, anterior hip-quads, piriformis indep with HEP and improved body piercer awareness. She is not able to transfer off the floor without using her arms to pull herself up. Education completed for HEP for basic trunk stretch and strengthening. Goals were partially met; Discharge PT services. Plan of Care PT Services Indicated No
== END 2022-11-02 11:24 | disposition home or self-care (01) ==
LOC: ANHPT 15:30
DX: M25.561 Pain in right knee (principal); M25.562 Pain in left knee; M54.50 Low back pain, unspecified; G89.29 Other chronic pain
CPT/HCPCS: 97110; 97112; 97161; 97530

== ENCOUNTER 2022-11-29 15:56 | Outpatient (CLI) | payer OTHER, SELFPAY ==
[2022-11-29 16:32] LABS: Alanine Aminotransferase 50 U/L (6-35); Aspartate Amino Transferase 44 U/L (14-36)
== END 2022-11-29 15:57 | disposition home or self-care (01) ==
PROVIDERS: Visit Provider Podiatrist Foot & Ankle Surgery
DX: B35.1 Tinea unguium (principal)
CPT/HCPCS: 36415; 84450; 84460

== ENCOUNTER 2023-04-08 07:01 | Outpatient (CLI) | payer OTHER, SELFPAY ==
[2023-04-08 09:15] LABS: Basophils Absolute Auto 0.1 K/mm3 (0.0-0.1); Basophils Percent Auto 0.9 % (0.2-1.2); Eosinophils Absolute Auto 0.1 K/mm3 (0-0.3); Eosinophils Percent Auto 1.7 % (0-4.4); Hematocrit 42.3 % (37.0-47.0); Hemoglobin 14.2 g/dL (12.0-15.0); Immature Granulocyte Absolute 0.03 K/mm3 (0.00-0.031); Immature Granulocyte Percent A 0.4 % (0-0.5); Lymphocytes Absolute Auto 2.25 K/mm3 (0.9-3.2); Lymphocytes Percent Auto 30.1 % (18.3-44.2); Mean Corpuscular HGB Conc 33.6 g/dl (32-36); Mean Corpuscular Hemoglobin 31.1 pg (26-34); Mean Corpuscular Volume 92.8 fl (80-100); Mean Platelet Volume 9.5 fl (7.4-10.4); Monocytes Absolute Auto 0.6 K/mm3 (0.1-0.6); Neutrophils Absolute Auto 4.4 K/mm3 (1.3-6.7); Neutrophils Percent Auto 58.9 % (45.5-73.1); Platelet Count Result 274 k/mm3 (150-375); Red Blood Count 4.56 M/mm3 (4.2-5.4); Red Cell Distribution Width 12.9 % (11.5-14.5); White Blood Count 7.5 K/mm3 (4.5-10.0)
[2023-04-08 09:56] LABS: Alanine Aminotransferase 38 U/L (6-35); Albumin Level 4.4 g/dL (3.5-5.1); Alkaline Phosphatase 87 U/L (38-126); Anion Gap 6 mmol/L (8-16); Aspartate Amino Transferase 30 U/L (14-36); Bilirubin,Total 0.8 mg/dL (0.2-1.3); Blood Urea Nitrogen 23 mg/dL (7-17); Calcium 9.8 mg/dL (8.4-10.2); Carbon Dioxide 30 mmol/L (22-30); Chloride 106 mmol/L (98-107); Cholesterol 251 mg/dL (0-200); Estimated Glomerular Filt Rate > 60; Glucose 100 mg/dL (65-110); HDL Direct 51 mg/dL; Potassium 4.1 mmol/L (3.4-5.0); Sodium 142 mmol/L (137-145); Triglycerides 121 mg/dL (<150)
[2023-04-08 10:06] LABS: LDL Cholesterol Direct 150 mg/dL
[2023-04-08 10:49] LABS: Vitamin D 25 Hydroxy 57.3 ng/mL
== END 2023-04-08 07:02 | disposition home or self-care (01) ==
LOC: ANHLAB 07:04
PROVIDERS: Visit Provider Physician Assistant
DX: Z00.01 Encounter for general adult medical examination with abnormal findings (principal); E55.9 Vitamin D deficiency, unspecified
CPT/HCPCS: 36415; 80053; 80061; 82306; 84443; 85025

== ENCOUNTER 2023-08-10 08:33 | Emergency (ER) | payer OTHER, SELFPAY ==
[2023-08-10] VITALS (8 sets, daily range): BP systolic 105–160; BP diastolic 54–88; PULSE 67–92; RESP 13–26; TEMP 36.3; O2SAT 92–100
--- NOTE | ~2023-08-10 | CT_ITS ---
EXAMINATION: CT brain wo con DATE: 08/10/2023 10:11 INDICATION: Altered mental status TECHNIQUE: Computed tomography (CT) of the head was performed without intravenous contrast. The dose- length product was 605.33 mGy-cm. Automated exposure control and iterative reconstruction technique w ere employed. COMPARISON: None FINDINGS: There is a midline heterogeneous mass measuring approximately 5 x 3.9 x 3.8 cm which involv es the lateral ventricles. There is mass effect. There is geographic hypodensity of the left parietal lobe, suspicious for an age-indeterminate infarction versus vasogenic edema from adjacent tumor. Par anasal sinuses and mastoids are pneumatized. No depressed skull fractures. There are scattered mild p eriventricular and subcortical white matter changes, most likely related to small vessel ischemic dis ease (microangiopathy). IMPRESSION: 1. Complex intra-axial mass at the midline with mass effect on the ventricles and possible intraventr icular involvement. Mass measures 5 x 3.9 x 3.8 cm. Considerations include metastatic disease, primar y neurogenic glioma and lymphoma. Adjacent geographic hypodensity of the left parietal lobe may refle ct vasogenic edema or age indeterminate infarction. Recommend correlation with MRI brain without and with contrast. Reviewed, dictated and finalized at location B. Y LOOM CHAIN PEGGER IMPRESSION: 1. Complex intra-axial mass at the midline with mass effect on the ventricles a nd possible intraventricular involvement. Mass measures 5 x 3.9 x 3.8 cm. Consi derations include metastatic disease, primary neurogenic glioma and lymphoma. A djacent geographic hypodensity of the left parietal lobe may reflect vasogenic edema or age indeterminate infarction. Recommend correlation with MRI brain wit hout and with contrast.
--- NOTE | ~2023-08-10 | XR_ITS ---
EXAMINATION: XR chest 2V 08/10/2023 10:13 INDICATION: Weakness. Unsteady gait. PROCEDURE: 2 view chest COMPARISON: 05/22/2008 FINDINGS: The lungs are clear. The cardiomediastinal silhouette is within normal limits. There are no pleural effusions. There is no pneumothorax suspected. Mild thoracic spondylosis. IMPRESSION: 1: NO ACUTE CARDIOPULMONARY DISEASE. Reviewed, dictated and finalized at location B. ITECTURAL SALES CONSULTANT
--- NOTE | ~2023-08-10 | CT_ITS ---
EXAMINATION: CT facial & cervical spine wo DATE: 08/10/2023 10:11 INDICATION: Status post fall. Facial and neck pain TECHNIQUE: Computed tomography (CT) of the maxillofacial region and cervical spine was performed with out intravenous contrast. The dose-length product was 409.52 mGy-cm. Automated exposure control and iterative reconstruction technique were employed. COMPARISON: None FINDINGS: MAXILLOFACIAL CT: No acute facial fracture. Orbits, sinuses, nasal bones, maxilla, mandible, zygomatic arches and ptery goid plates are intact. Temporomandibular joints are symmetric. Leftward nasal septal deviation. Mast oids are pneumatized. CERVICAL SPINE CT: There is mild degenerative spondylosis at multiple levels, most advanced at C6-7. Odontoid process is normal. Craniovertebral junction is normal. There is multilevel uncinate and facet hypertrophy. No e vidence for spondylolisthesis. There is an old avulsion fracture spinous process of C5. Mild levocurv ature of the cervical spine. Craniovertebral junction is normal. IMPRESSION: 1. No acute abnormality of the facial bones or cervical spine. Reviewed, dictated and finalized at location B. INUM CAN COLLECTOR
--- NOTE | 2023-08-10 09:55 | ECG_ITS ---
Measurements Intervals [place] Rate: 88 P: 40 [place]: 153 QRS: 20 QRSD: 92 T: 2 QT: 355 QTc: 431 Interpretive Statements SINUS RHYTHM BORDERLINE ST-T WAVE ABNORMALITY- INFERIOR LEADS BORDERLINE ECG COMPARED TO ECG 05/08/2020 16:12:27 NO SIGNIFICANT CHANGES Electronically Signed On 08-10-2023 10:49:36 ELECTRICAL ACCESSORIES II ASSEMBLER by Edgar Hu D.O.
[2023-08-10 10:27] LABS: Basophils Percent Auto 0.6 % (0.2-1.2); Eosinophils Absolute Auto 0.1 K/mm3 (0-0.3); Eosinophils Percent Auto 1.7 % (0-4.4); Hematocrit 42.5 % (37.0-47.0); Hemoglobin 13.8 g/dL (12.0-15.0); Immature Granulocyte Absolute 0.05 K/mm3 (0.00-0.031); Immature Granulocyte Percent A 0.7 % (0-0.5); Lymphocytes Percent Auto 24.3 % (18.3-44.2); Mean Corpuscular HGB Conc 32.5 g/dl (32-36); Mean Corpuscular Hemoglobin 30.3 pg (26-34); Mean Corpuscular Volume 93.4 fl (80-100); Mean Platelet Volume 10.4 fl (7.4-10.4); Monocytes Absolute Auto 0.5 K/mm3 (0.1-0.6); Monocytes Percent Auto 7.3 % (2.6-8.5); Neutrophils Absolute Auto 4.6 K/mm3 (1.3-6.7); Neutrophils Percent Auto 65.4 % (45.5-73.1); Platelet Count Result 252 k/mm3 (150-375); Red Blood Count 4.55 M/mm3 (4.2-5.4); Red Cell Distribution Width 13.2 % (11.5-14.5)
[2023-08-10 10:37] LABS: Alanine Aminotransferase 29 U/L (6-35); Albumin Level 4.2 g/dL (3.5-5.1); Alkaline Phosphatase 84 U/L (38-126); Anion Gap 7 mmol/L (8-16); Aspartate Amino Transferase 28 U/L (14-36); Bilirubin,Total 1.1 mg/dL (0.2-1.3); Blood Urea Nitrogen 18 mg/dL (7-17); Calcium 9.2 mg/dL (8.4-10.2); Carbon Dioxide 29 mmol/L (22-30); Chloride 108 mmol/L (98-107); Estimated Glomerular Filt Rate > 60; Glucose 102 mg/dL (65-110); Potassium 3.7 mmol/L (3.4-5.0); Sodium 144 mmol/L (137-145)
--- NOTE | 2023-08-10 11:20 | ED.WEAKNESS ---
HPI - Weakness General Chief complaint: Weakness <Stacie Watt PA-C - Last Filed: 08/10/23 14:33> Stated complaint: frequent falls <ANN Perez Last Filed: 08/10/23 14:33> Time Seen by Provider: 08/10/23 09:54 <Stacie Watt PA-C - Last Filed: 08/10/23 14:33> Source: patient <ANN Perez Last Filed: 08/10/23 14:33> Mode of arrival: ambulatory <ANN Perez Last Filed: 08/10/23 14:33> Limitations: no limitations <ANN Perez Last Filed: 08/10/23 14:33> History of Present Illness HPI Narrative: this is a 63-year-old female that presents to the emergency department for gait disturbance. Reports over the last week she has become more unsteady on her feet. This has caused her to have several falls recently. She did hit her head when she fell yesterday. Reports abrasion to her upper lip. She did not lose consciousness. Denies vision changes, vomiting, numbness, weakness. <ANN Perez Last Filed: 08/10/23 14:33> Related Data Home medications: Home Medications Medication Instructions Recorded Confirmed Vitamin D3 1 tablet PO DAILY 05/05/20 04/01/23 aspirin 81 mg tablet 81 mg PO DAILY 05/05/20 04/01/23 calcium 600 mg capsule 600 mg PO DAILY 05/05/20 04/01/23 losartan 100 mg tablet 100 mg PO DAILY 05/05/20 04/01/23 multivitamin 1 tablet PO DAILY 05/05/20 04/01/23 omega-3 fatty acids 1,000 mg PO DAILY 05/05/20 04/01/23 inulin 2 gram chewable tablet g PO 03/05/22 04/01/23 (Fiber Gummies) omega 6-oys-doj-fish oil 300 1 cap PO DAILY 04/01/23 04/01/23 mg-1,000 mg capsule,delayed release (Fish Oil) <ANN Perez Last Filed: 08/10/23 14:33> Allergies/Adverse reactions: Allergies Allergy/AdvReac Type Severity Reaction Status Date / Time No Known Allergies Allergy Verified 08/10/23 14:00 <Stacie Watt PA-C - Last Filed: 08/10/23 14:33> Review of Systems Review of Systems: CONSTITUTIONAL: Denies fever EYES: Denies visual changes GASTROINTESTINAL: Denies vomiting GENITOURINARY: Denies dysuria MUSCULOSKELETAL: Denies back pain, joint pain, or myalgia. NEUROLOGIC: Denies headache, numbness, or weakness. <Stacie Watt PA-C - Last Filed: 08/10/23 14:33> All systems reviewed & are unremarkable except as noted in HPI and below <Stacie Watt PA-C - Last Filed: 08/10/23 14:33> [facility] Past Medical History Medical History: Medical History History of fracture of patella (~2019) Rt HTN (hypertension) Obesity Post-menopausal bleeding <Stacie Watt PA-C - Last Filed: 08/10/23 14:33> Surgical History Surgical History: Surgical History H/O section x3 - 1985, 1987, 1989 H/O dilation and curettage (~2020) History of hysteroscopy Tubal ligation status (~1989) <Stacie Watt PA-C - Last Filed: 08/10/23 14:33> Family History Family History: Family History Father Malignant neoplasm of prostate Arthritis Parkinsons Grandparent Diabetes mellitus Cerebrovascular accident Carcinoma of colon Mother Family history of hypercholesterolemia Hypertension Familial primary pulmonary hypertension Breast cancer Arthritis <Stacie Watt PA-C - Last Filed: 08/10/23 14:33> Social History Social History: Social History Smoking status: Never smoker Alcohol intake: current Lack of Transportation: No Lack of Food: Never True Current Housing: I Have Housing Concerned About Future Housing: No Difficulty Paying Gas/Electric Bills: No Difficulty Paying for Meds: No Currently Unemployed: No Education: Associate Degree Difficulty w/ Childcare or Family Care: No Gender identity (if verbalized by the p
[2023-08-10 11:57] LABS: Appearance Urine Cloudy (Clear); Bacteria Urine 4+ /hpf; Bilirubin Urine Negative (Negative); Blood Urine 1+ (Negative); Color Urine Yellow (Yellow); Glucose Urine UA Negative (Negative); Ketones Urine Negative (Negative); Leukocyte Esterase Ur Trace LEU/UL (Negative); Need Manual Microscopic Reviewed; Nitrate Urine Negative (Negative); Protein Urine Negative (Negative); RBC Urine 21-50 /hpf (0-2); Specific Grav Ur 1.011 (1.001-1.035); Squamous Epithelial Cell Urine Moderate /hpf (Few); Urobilinogen Urine 0.2 mg/dL (<2.0); WBC Urine 21-50 /hpf; pH Urine 5.5 (5.0-9.0)
[2023-08-10 11:59] LABS: Add Urine Microscopic? YES
--- NOTE | 2023-08-10 13:04 | PCCCNOTE ---
Call received requesting we speak to pt regarding questions she has. Met with pt and spouse. She stated she has insurance here but has the lowest of 3 tiers. She was under the impression that she would need to go to [facility] to have coverage for her care. She has been informed by her network of support to not go to [facility] but to go to [facility]. She is aware that if she received care at a facility not in her plan, it most likely would not be covered and that she would have to pay the balance out of her pocket. She is still preferring to go to [facility]. It was recommended to her to look at reviews for [facility] as facilities have different areas they are better in and neurosurg might be one [facility] is better in. It was also recommended to her that she call HR to find out which facilities her current plan covers, and ask if she can pay for the difference between her plan premium and the plan premium covering [facility] as the enrollment period just ended. She will call them and see who there can help her.
== END 2023-08-10 14:00 | disposition short-term general hospital (02) ==
PROVIDERS: Emergency Provider Physician Assistant
DX: R22.0 Localized swelling, mass and lump, head (principal); R82.81 Pyuria; I10 Essential (primary) hypertension
CPT/HCPCS: 36415; 70450; 70486; 71046; 72125; 80053; 81001; 85025; 87086; 87088; 93005; 96374; 99285; J1100

== ENCOUNTER 2024-05-18 14:18 | Outpatient (CLI) | payer OTHER, SELFPAY ==
--- NOTE | ~2024-05-18 | MM_ITS ---
EXAMINATION: MM screening sabina BI w kamila HISTORY: Screening mammogram, family history of breast cancer in her mother. TECHNIQUE: Craniocaudal and mediolateral oblique 3-D tomosynthesis images were obtained and synthetic 2-D images were generated. CAD analysis was submitted and interpreted. COMPARISON: 08/25/2022: 2622, 01/09/2021 BREAST PARENCHYMAL COMPOSITION:Not Dense. There are scattered areas of fibroglandular density. FINDINGS: No suspicious mass, calcification, or architectural distortion are identified in either clotilde ast to suggest malignancy. There has been no suspicious interval change. IMPRESSION: No mammographic evidence of malignancy. Recommend routine screening mammography in one year. BI-RADS Category 1: Negative Reviewed, dictated and finalized at location .
== END 2024-05-18 14:19 | disposition home or self-care (01) ==
LOC: ANHIMG 14:21
DX: Z12.31 Encounter for screening mammogram for malignant neoplasm of breast (principal)
CPT/HCPCS: 77063; 77067

== ENCOUNTER 2024-06-18 09:30 | Outpatient (CLI) | payer OTHER, SELFPAY ==
--- NOTE | ~2024-06-18 | XR_ITS ---
AP and lateral views of the left hip Clinical history: Pain Findings: No acute fracture or dislocation is seen. Osseous alignment is anatomic. Left hip joint spa ce is intact. There is spurring and bony productive change at the superolateral acetabular margin.. S oft tissues are unremarkable. Impression: Mild degenerative change of the left hip joint, as above. Reviewed, dictated and finalized at location M. [place] Impression: Mild degenerative change of the left hip joint, as above.
--- NOTE | ~2024-06-18 | XR_ITS ---
EXAMINATION: XR lumbar spine 2-3V DATE: 06/18/2024 09:53 INDICATION: Left-sided low back pain. TECHNIQUE: 3 views of lumbar spine were obtained. COMPARISON: CT abdomen 08/25/2022 FINDINGS: There is 7 degrees levocurvature of lumbar spine. There is 3 mm anterolisthesis of L4 on L5 . Vertebral body heights are normal. There is moderately decreased disc height at L5-S1. There are br idging endplate osteophytes at multiple levels in the spine, consistent with diffuse idiopathic skele brittany hyperostosis (DISH). There is multilevel facet joint osteoarthritis, severe in lower lumbar spine . IMPRESSION: 1. Moderate lower lumbar spondylosis. 2. DISH. Reviewed, dictated and finalized at location A. PUNCHER
== END 2024-06-18 09:31 | disposition home or self-care (01) ==
PROVIDERS: Visit Provider Physician Assistant
DX: M47.816 Spondylosis without myelopathy or radiculopathy, lumbar region (principal); M48.16 Ankylosing hyperostosis [Forestier], lumbar region; M16.12 Unilateral primary osteoarthritis, left hip
CPT/HCPCS: 72100; 73502

== ENCOUNTER 2025-06-28 09:59 | Outpatient (CLI) | payer OTHER, SELFPAY ==
--- NOTE | ~2025-06-28 | MM_ITS ---
EXAMINATION: MM screening sabina BI w kamila HISTORY: Screening. TECHNIQUE: Craniocaudal and mediolateral oblique 3-D tomosynthesis images were obtained and synthetic 2-D images were generated. CAD analysis was submitted and interpreted. COMPARISON: 2023, 2022, and 2021. BREAST PARENCHYMAL COMPOSITION: Not Dense: There are scattered areas of fibroglandular FINDINGS: The exam is suboptimal because of difficulty with positioning the patient. No suspicious masses are seen. There are no suspicious calcifications. No unexplained architectural distortion is seen. There are no skin or nipple abnormalities identified. There is no adenopathy seen on the images submitted. IMPRESSION: No mammographic evidence to suggest malignancy is seen. The patient may return to screening mammography as per ACR guidelines. BI-RADS 1 - Negative. Reviewed, dictated and finalized at location C. P SCIENTIST
== END 2025-06-28 10:00 | disposition home or self-care (01) ==
LOC: ANHFOHIMG 10:12
DX: Z12.31 Encounter for screening mammogram for malignant neoplasm of breast (principal)
CPT/HCPCS: 77063; 77067